=== PATIENT | female | born 1980 | race Caucasian/White ===

== ENCOUNTER 2016-11-24 02:02 | Emergency (ER) | payer MEDICAID, OTHER ==
[~2016-11-24] VITALS: Ht 152.4 cm; Wt 79.4 kg
[2016-11-24 02:37] VITALS: BP 137/83
== END 2016-11-24 02:30 | disposition left against medical advice (07) ==
LOC: ER 02:08
DX: R53.1 Weakness (principal); Z53.21 Procedure and treatment not carried out due to patient leaving prior to being seen by health care provider